=== PATIENT | male | born 1995 | race Caucasian/White ===

== ENCOUNTER → 2016-12-13 | Outpatient (CLI) | payer OTHER | LOC: M OUTALCOH 10:25 | PROVIDERS: ATTEND Psychiatry & Neurology Psychiatry | DX: F12.20 Cannabis dependence, uncomplicated (principal) ==

== ENCOUNTER 2017-01-09 14:00 | Outpatient (RCR) | payer OTHER | END 2017-01-13 | LOC: M OUTALCOH 14:00 | PROVIDERS: ATTEND Psychiatry & Neurology Psychiatry | DX: F12.20 Cannabis dependence, uncomplicated (principal); Z72.0 Tobacco use ==

== ENCOUNTER 2017-02-07 16:00 | Outpatient (RCR) | payer OTHER | END 2017-02-12 | LOC: M OUTALCOH 16:00 | PROVIDERS: ATTEND Psychiatry & Neurology Psychiatry | DX: F12.20 Cannabis dependence, uncomplicated (principal); F17.210 Nicotine dependence, cigarettes, uncomplicated ==

== ENCOUNTER → 2017-07-10 | Outpatient (CLI) | payer OTHER | LOC: M OUTALCOH 08:26 | PROVIDERS: ATTEND Psychiatry & Neurology Psychiatry | DX: F12.20 Cannabis dependence, uncomplicated (principal) ==

== ENCOUNTER 2017-08-24 10:00 | Outpatient (RCR) | payer OTHER | END 2017-09-14 | LOC: M OUTALCOH 10:00 | PROVIDERS: ATTEND Psychiatry & Neurology Psychiatry | DX: F12.20 Cannabis dependence, uncomplicated (principal); F17.200 Nicotine dependence, unspecified, uncomplicated ==

== ENCOUNTER 2017-11-24 22:17 | Emergency (ER) | payer SELFPAY, OTHER | END 2017-11-25 01:06 | disposition left against medical advice (07) | LOC: M ED 22:17 | DX: Z53.29 Procedure and treatment not carried out because of patient's decision for other reasons (principal) ==

== ENCOUNTER → 2018-02-20 | Outpatient (CLI) | payer OTHER, SELFPAY | LOC: M OUTALCOH 07:52 | DX: F12.20 Cannabis dependence, uncomplicated (principal) ==

== ENCOUNTER 2018-03-08 15:47 | Outpatient (RCR) | payer OTHER | END 2018-03-15 | LOC: M OUTALCOH 15:47 | DX: F12.20 Cannabis dependence, uncomplicated (principal); F17.200 Nicotine dependence, unspecified, uncomplicated ==

== ENCOUNTER 2018-03-22 14:37 | Outpatient (RCR) | payer OTHER | END 2018-04-14 | LOC: M OUTALCOH 14:37 | DX: F12.20 Cannabis dependence, uncomplicated (principal); F17.200 Nicotine dependence, unspecified, uncomplicated ==

== ENCOUNTER → 2018-03-23 | Outpatient (REF) | payer OTHER | LOC: M SFHCPLAZ 09:55 | DX: K29.50 Unspecified chronic gastritis without bleeding (principal) ==

== ENCOUNTER 2018-05-15 18:39 | Emergency (ER) | payer BC, OTHER, SELFPAY ==
[2018-05-15] MEDS: IBUPROFEN 800 MG TAB PO (20:59)
[2018-05-15 21:20] LABS: KETONE, URINE AUTO RFX TRACE mg/dL (NEGATIVE); LEUKOCYTE ESTERASE UR AUTO RFX NEGATIVE (NEGATIVE); MUCUS, URINE RFX SMALL (NEGATIVE); NITRITE, URINE AUTO RFX NEGATIVE (NEGATIVE); RBC, URINE AUTO RFX 2 /HPF (0-3); SPECIFIC GRAVITY UR AUTO RFX 1.024 (1.002-1.035); SQUAM EPITHELIAL CELL UR AURFX 0 /HPF (0-6); WBC, URINE AUTO RFX 0 /HPF (0-3)
== END 2018-05-15 22:02 | disposition left against medical advice (07) ==
LOC: M ED 18:39
DX: R10.9 Unspecified abdominal pain (principal); R11.0 Nausea; Z88.0 Allergy status to penicillin; F17.210 Nicotine dependence, cigarettes, uncomplicated
CPT/HCPCS: 81001

== ENCOUNTER → 2018-06-25 | Outpatient (CLI) | payer OTHER | LOC: M OUTALCOH 07:46 | DX: F12.20 Cannabis dependence, uncomplicated (principal); F17.200 Nicotine dependence, unspecified, uncomplicated ==

== ENCOUNTER 2020-03-16 12:19 | Emergency (ER) | payer BC, OTHER ==
[~2020-03-16] VITALS: Ht 182.9 cm; Wt 136.6 kg
[2020-03-16] MEDS ORDERED: ASPIRIN 81 MG CHEW TABLET PO ONE (12:45)
[2020-03-16 12:59] LABS: BASO # 0.1 10^3/uL (0.0-0.2); BASO % 0.6 % (0.0-1.0); EOS # 0.2 10^3/uL (0.0-0.5); EOS % 1.6 % (0.0-3.0); HEMATOCRIT 46.4 % (42.0-52.0); HEMOGLOBIN 15.8 g/dl (13.5-17.5); LYMPH # 3.1 10^3/uL (1.5-5.0); LYMPH % 28.6 % (24.0-44.0); MEAN CORPUSCULAR HGB CONC 34.1 g/dl (32.0-36.5); MEAN CORPUSCULAR VOLUME 85.1 fl (80.0-96.0); MONO # 0.6 10^3/uL (0.0-0.8); MONO % 5.9 % (0.0-5.0); NEUTROPHILS # 6.8 10^3/uL (1.5-8.5); NEUTROPHILS % 62.9 % (36.0-66.0); PLATELET COUNT, AUTOMATED 279 10^3/uL (150-450); RED BLOOD COUNT 5.45 10^6/uL (4.30-6.10); WHITE BLOOD COUNT 10.7 10^3/uL (4.0-10.0)
[2020-03-16] MEDS: NITROGLYCERIN 0.4 MG SUBL TABLET SL PRN ×3 (13:00→13:37)
[2020-03-16 13:10] LABS: INR 1.02; PROTHROMBIN TIME 13.1 SECONDS (11.8-14.0)
[2020-03-16 13:11] LABS: PARTIAL THROMBOPLASTIN TIME 30.9 SECONDS (25.0-38.4)
[2020-03-16 13:16] LABS: ALBUMIN 4.3 GM/DL (3.2-5.2); ALT/SGPT 122 U/L (12-78); BILIRUBIN,DIRECT 0.1 MG/DL (0.0-0.2); BILIRUBIN,TOTAL 0.4 MG/DL (0.2-1.0); BLOOD UREA NITROGEN 10 MG/DL (7-18); CALCIUM LEVEL 9.4 MG/DL (8.5-10.1); CARBON DIOXIDE LEVEL 25 MEQ/L (21-32); CHLORIDE LEVEL 105 MEQ/L (98-107); CK-MB VALUE MASS < 1.0 NG/ML (<3.6); CPK CREATINE PHOSPHOKINASE 222 U/L (39-308); CREATININE FOR GFR 1.13 MG/DL (0.70-1.30); GLOMERULAR FILTRATION RATE > 60.0 (>60); GLUCOSE, FASTING 103 MG/DL (70-100); LIPASE 203 U/L (73-393); MB/CK RELATIVE INDEX 0.45 (< OR =4); SODIUM LEVEL 139 MEQ/L (136-145); TOTAL PROTEIN 8.1 GM/DL (6.4-8.2); TROPONIN I < 0.02 NG/ML (< 0.10)
[2020-03-16 13:37] VITALS: BP 123/60
[2020-03-16] MEDS ORDERED: ISOVUE-370 76% 100ML VIAL As Ordered ONE (13:37)
--- NOTE | 2020-03-16 14:18 | REP ---
REASON FOR EXAM: Chest pain . FINDINGS: The technique utilized in obtaining the radiograph has magnified the cardiac silhouette and accentuated the interstitial markings. The superior mediastinal structures are midline. The cardiac silhouette is unremarkable in size, shape, and position. The diaphragmatic surfaces of the lungs are regular, and the costophrenic angles are clear. The pulmonary dorsey are clear. The imaged osseous structures are intact. IMPRESSION: There is no acute cardiopulmonary disease. Electronically Signed by Mike Dickinson DO 03/16/2020 05:12 P
--- NOTE | 2020-03-16 14:41 | REP ---
Left lower extremity Duplex Doppler venous ultrasound: Real time compression and duplex Doppler interrogation of the left lower extremity deep venous system is performed. The left common femoral, superficial femoral and popliteal veins are fully compressible with transducer pressure and demonstrate normal spontaneous and phasic flow, without evidence of deep venous thrombosis. Impression: No evidence of deep venous thrombosis of the left lower extremity femoral popliteal venous system. Electronically Signed by Ramy Myers MD 03/16/2020 02:32 P
--- NOTE | 2020-03-16 15:34 | REP ---
REASON: Chest pain and dyspnea. PRIORS None. CONTRAST: 100 mL Isovue 370. There is good visualization of the pulmonary arterial vasculature. There are no focal filling defects present that would be considered consistent with acute pulmonary emboli. There are no pleural or pericardial effusions. The imaged upper abdomen and imaged osseous structures are within normal limits. There is low density suspected throughout the liver parenchyma, however, there are no precontrast images to review. Evaluation of the lung dorsey shows respiratory motion artifact. There are no abnormal nodules, masses, or opacities. IMPRESSION: 1. There is no evidence of an acute pulmonary embolus. 2. There is evidence to suggest diffuse fatty infiltration of the liver. This could be confirmed with hepatic ultrasonography if clinically relevant. 3. There is no evidence of acute lung field disease. Electronically Signed by Mike Dickinson DO 03/16/2020 05:13 P
[2020-03-16 19:09] LABS: CK-MB VALUE MASS < 1.0 NG/ML (<3.6); CPK CREATINE PHOSPHOKINASE 189 U/L (39-308); MB/CK RELATIVE INDEX 0.53 (< OR =4); TROPONIN I < 0.02 NG/ML (< 0.10)
[2020-03-16 20:04] VITALS: BP 146/68
--- NOTE | 2020-03-16 20:36 | ECGEPIP ---
[facility] - ED Test Date: 2020-03-16 Pat Name: VENTURA HUDSON Department: Room: - Gender: Male [employer]ator: layne : 1995 Requested By: RYAN Rodrigez Order Number: [id number] Reading MD: Cas Ruelas Measurements Intervals [place] Rate: 123 P: 9 SD: 131 QRS: 9 QRSD: 105 T: 29 QT: 303 QTc: 434 Interpretive Statements SINUS TACHYCARDIA MODERATE VOLTAGE CRITERIA FOR LVH, CONSIDER NORMAL VARIANT Nonspecific T wave abnormality Rate increased from tracing done 01-24-16 Electronically Signed on 03-16-2020 20:36:20 EDT by Cas Ruelas
--- NOTE | 2020-03-16 20:54 | ECGEPIP ---
[facility] - ED Test Date: 2020-03-16 Pat Name: VENTURA HUDSON Department: Room: - Gender: Male Care Aid: layne : 1995 Requested By: RYAN Rodrigez Order Number: [id number] Reading MD: Cas Ruelas Measurements Intervals [place] Rate: 82 P: 20 ND: 130 QRS: 17 QRSD: 100 T: 20 QT: 333 QTc: 389 Interpretive Statements SINUS RHYTHM Baseline artifact Electronically Signed on 03-16-2020 20:54:30 EDT by Cas Ruelas
== END 2020-03-16 20:33 | disposition home or self-care (01) ==
LOC: M ED 12:19
DX: R07.9 Chest pain, unspecified (principal); R00.0 Tachycardia, unspecified; R06.02 Shortness of breath; M79.605 Pain in left leg; I10 Essential (primary) hypertension; F17.200 Nicotine dependence, unspecified, uncomplicated; Z88.0 Allergy status to penicillin
CPT/HCPCS: 71045; 71275; 80048; 80076; 82550; 82553; 83690; 84484; 85025; 85610; 85730; 93005; 93041; 93971; 94760; 99285; Q9967

== ENCOUNTER → 2023-11-07 | Outpatient (CLI) | payer OTHER, SELFPAY ==
[2023-11-07 14:31] LABS: CREATININE, URINE 82.6 MG/DL; MALB URINE SIEMENS < 3.0 MG/L; MAU/CREAT RATIO 3.6 MCG/MG (0.0-30.0)
[2023-11-07 14:37] LABS: ALBUMIN 4.1 G/DL (3.2-5.2); ALKALINE PHOSPHATASE 76 U/L (46-116); ALT/SGPT 42 U/L (7.0-40); AST/SGOT 22 U/L (<34); BILIRUBIN,TOTAL 0.3 MG/DL (0.3-1.2); BLOOD UREA NITROGEN 18 MG/DL (9-23); CALCIUM LEVEL 9.3 MG/DL (8.5-10.1); CARBON DIOXIDE LEVEL 28 MMOL/L (20-31); CHLORIDE LEVEL 103 MMOL/L (98-107); CHOLESTEROL LEVEL 234 MG/DL (<200); CHOLESTEROL RISK RATIO 6.51 (<5); CREATININE FOR GFR 0.94 MG/DL (0.70-1.30); GLOMERULAR FILTRATION RATE > 60.0 (>60); GLUCOSE, FASTING 269 MG/DL (60-100); HDL CHOLESTEROL 35.9 MG/DL (>40); NON-HDL-C 198.1 MG/DL; POTASSIUM SERUM 4.7 MMOL/L (3.5-5.1); SODIUM LEVEL 138 MMOL/L (136-145); THYROID STIMULATING HORMONE 3.389 uIU/ML (0.55-4.78); TOTAL PROTEIN 7.2 G/DL (5.7-8.2); TRIGLYCERIDES LEVEL 451 MG/DL (<150)
[2023-11-07 14:46] LABS: HEMOGLOBIN A1c 5.6 % (4.0-6.0)
== END ==
LOC: M PLALAB 11:37
PROVIDERS: ATTEND Family Medicine
DX: E66.9 Obesity, unspecified (principal); I10 Essential (primary) hypertension; F33.2 Major depressive disorder, recurrent severe without psychotic features